=== PATIENT | female | born 1990 | race Caucasian/White ===

== ENCOUNTER 2016-07-07 14:48 | Outpatient (CLI) | payer BC ==
[2016-07-07 15:16] VITALS: BMI 39.5
== END 2016-07-07 16:36 | disposition home or self-care (01) ==
LOC: FBC 14:48 → FBCOUT 14:48
PROVIDERS: ATTEND Obstetrics & Gynecology
DX: O26.899 Other specified pregnancy related conditions, unspecified trimester (principal); Z3A.00 Weeks of gestation of pregnancy not specified
CPT/HCPCS: 59025; 81002; G0463

== ENCOUNTER 2016-07-30 21:41 | Inpatient (IN) | payer BC ==
[2016-07-30 22:00] VITALS: BMI 40.6
[2016-07-30] MEDS ORDERED: LACTATED RINGERS 1,000 ML IV PRN (22:19)
[2016-07-30] MEDS ORDERED: OXYTOCIN IN LR 500 ML IV ONE (22:19)
[2016-07-30] MEDS ORDERED: PENICILLIN G POTASSIUM 5 MMU in NS 0.9% (MINI-BAG PLUS) 100 ML IV ONE (22:20)
[2016-07-30] MEDS ORDERED: OXYTOCIN 10 UNITS/ML VIAL ONE (22:29)
[2016-07-30] MEDS ORDERED: IV START KIT ONE (22:29)
[2016-07-30] MEDS ORDERED: MINERAL OIL 25 ML BOT ONE (22:30)
[2016-07-30] MEDS ORDERED: PUMP TUBING ONE (22:30)
[2016-07-30] MEDS ORDERED: LIDOCAINE 1% (PRES FREE) 30 ML VIAL ONE (22:30)
[2016-07-30] MEDS ORDERED: LACTATED RINGERS 1,000 ML IV SCH (22:30)
[2016-07-30] MEDS ORDERED: FENTANYL/ROPIVACAINE EPIDURAL 250 ML EP ONE (22:30)
[2016-07-30] MEDS ORDERED: LIDOCAINE Viscous 2% 15 ML UDCUP ONE (22:30)
[2016-07-30] MEDS ORDERED: EPIDURAL PUMP SET ONE (22:30)
[2016-07-30] MEDS ORDERED: PENICILLIN G POTASSIUM 5 MMU VIAL ONE (22:42)
[2016-07-30] MEDS ORDERED: NS 0.9% (MINI-BAG PLUS) 100 ML IV ONE (22:46)
[2016-07-30 23:04] LABS: HEMATOCRIT 33.9 % (37.0-47.0); HEMOGLOBIN 11.5 gm/l (12.0-16.0); MEAN CORPUSCULAR HEMOGLOBIN 30.2 pg (27.0-31.0); MEAN CORPUSCULAR HGB CONC 33.9 g/dl (33.0-37.0); RED CELL DISTRIBUTION WIDTH 13.2 % (11.5-14.5)
[2016-07-30] MEDS ORDERED: FENTANYL 100 MCG/2 ML VIAL ONE (23:17)
[2016-07-30] MEDS ORDERED: EPIDURAL PROCEDURE TRAY ONE (23:18)
[2016-07-30] MEDS ORDERED: LIDOCAINE 2% (PRES FREE) 5 ML VIAL ONE (23:18)
[2016-07-30] MEDS ORDERED: FENTANYL/ROPIVACAINE EPIDURAL 250 ML EP SCH (23:22)
[2016-07-30] MEDS ORDERED: ROPIVACAINE 0.5% 30 ML VIAL ONE (23:50)
[2016-07-31] MEDS ORDERED: EPHEDRINE SULFATE 50 MG/ML 1ML VIAL IV PRN ×2 (00:23→02:32)
[2016-07-31] MEDS ORDERED: NALBUPHINE HCL 20 MG/ML AMP IV PRN ×2 (00:23→02:32)
[2016-07-31] MEDS ORDERED: DIPHENHYDRAMINE HCL 50 MG/1 ML VIAL IV PRN ×2 (00:23→02:32)
[2016-07-31] MEDS ORDERED: LACTATED RINGERS 1,000 ML IV SCH ×2 (00:23→02:32)
[2016-07-31] MEDS ORDERED: LACTATED RINGERS 500 ML IV PRN ×2 (00:23→02:32)
[2016-07-31] MEDS ORDERED: NALOXONE HCL 0.4 MG/ML VIAL IV PRN ×2 (00:23→02:32)
[2016-07-31] MEDS ORDERED: SODIUM CHLORIDE 0.9% 500 ML IV PRN ×2 (00:23→02:32)
[2016-07-31] MEDS ORDERED: ONDANSETRON 4 MG/2ML 2 ML VIAL IV PRN ×2 (00:23→02:32)
[2016-07-31] MEDS ORDERED: METOCLOPRAMIDE HCL 5 MG/ML 2ML VIAL IV PRN ×2 (00:23→02:32)
[2016-07-31] MEDS ORDERED: PENICILLIN G POTASSIUM 5 MMU in NS 0.9% (MINI-BAG PLUS) 100 ML IV ONE (00:30)
[2016-07-31] MEDS ORDERED: ROPIVACAINE 0.5% 30 ML VIAL ONE ×2 (00:44→04:16)
[2016-07-31] MEDS: FENTANYL/ROPIVACAINE EPIDURAL 250 ML EP SCH ×2 (01:01→11:44)
[2016-07-31] MEDS ORDERED: PENICILLIN G 3 MIL UNIT PREMIX 50 ML IV ONE (02:33)
[2016-07-31] MEDS ORDERED: PENICILLIN G 3 MIL UNIT PREMIX 3 MMU in Premix (D5W) 50 ml 1 EACH IV SCH (04:00)
[2016-07-31] MEDS ORDERED: MINERAL OIL 25 ML BOT TP ONE (05:42)
--- NOTE | 2016-07-31 06:03 | PCMDEL ---
Delivery Note - Delivery Delivery (Date): 07/31/16 Gender: Male Presentation: Cephalic Position: OA Umbilical Cord: 3 Vessel, Nuchal Cord (tight, cut on perineum) Placenta:: spontaneous and complete EBL:: 300ml Perineum:: intact
--- NOTE | 2016-07-31 06:04 | PCMAN ---
OB Admission Note - History : 5 Term: 2 : 0 Abortions (S&E): 2 Livin Gestational Age (weeks): 41 Days (#/7): 1 Admit Cervical Dilation:: 4 Admit Cervical Effacement (%):: 80 Admit Station:: -1 Admit Presentaton:: vtx Membrane Status: Ruptured Labor Onset (Date): 07/30/16 Labor Onset (Time): 16:30 Contractions: Yes Contraction Frequency:: 2-4 Heart Rate:: 140 Status:: category 1 tracing - Labs Blood Type: A (+) positive
[2016-07-31] MEDS ORDERED: DIPHTH,PERTUSS(ACELL),TET VAC 0.5 ML VIAL IM V ONE (06:20)
[2016-07-31] MEDS ORDERED: HYDROCODONE/ACETAMINOPHEN 5/325MG TABLET PO PRN (06:20)
[2016-07-31] MEDS ORDERED: MEASLES,MUMPS&RUBELLA VACCINE 0.5 ML VIAL SUB-Q V ONE (06:20)
[2016-07-31] MEDS ORDERED: LANOLIN 50 APPLIC/7G TUBE TP PRN (06:20)
[2016-07-31] MEDS ORDERED: BENZOCAINE/MENTHOL 60 APPLIC/BOT TP PRN (06:20)
[2016-07-31] MEDS ORDERED: PNEUMOCOCCAL 23-VAL P-SAC VAC 0.5 ML VIAL IM V ONE (06:32)
[2016-07-31] MEDS: DOCUSATE SODIUM 100 MG CAPSULE PO SCH (12:48)
[2016-07-31] MEDS: IBUPROFEN 800 MG TABLET PO PRN ×2 (12:48→19:05)
[2016-08-01] MEDS: IBUPROFEN 800 MG TABLET PO PRN (00:45)
[2016-08-01 07:03] LABS: HEMATOCRIT 26.1 % (37.0-47.0); HEMOGLOBIN 8.8 gm/l (12.0-16.0)
[2016-08-01 08:17] VITALS: BP 125/64
--- NOTE | 2016-08-01 09:08 | PDOC44 ---
- Subjective Day: 1 Reports Pain Tolerable, Reports , Reports Tolerating Regular Diet - Objective Temp Pulse Resp BP Pulse Ox 98.7 F 67 16 125/64 08/01/16 08:00 08/01/16 08:00 08/01/16 08:00 08/01/16 08:00 Lab Results 08/01/16 06:10 Hgb 8.8 L D Hct 26.1 L Current Medications Generic Name Dose Route Start Last Admin Trade Name Freq PRN Reason Stop Dose Admin Acetaminophen/Hydrocodone Bitart 1 - 2 tab 07/31/16 06:20 [place] 5/325 PO Q4H PRN Pain (Moderate) Benzocaine/Menthol 1 applic 07/31/16 06:20 Dermoplast TP PRN PRN Patient Comfort Diphenhydramine HCl 25 - 50 mg 07/31/16 02:32 Benadryl IV Q4H PRN Itching Docusate Sodium 100 mg 07/31/16 09:00 07/31/16 12:48 Colace PO 100 mg DAILY TERESA Administration Emollient Ointment 1 applic 07/31/16 06:20 Uiw-Z-Rmidus TP PRN PRN sore nipples Ephedrine Sulfate 10 mg 07/31/16 02:32 Ephedrine Sulfate IV Q5M PRN Ropivacaine/Fentanyl/NS 250 mls @ 0 mls/hr 07/31/16 06:00 07/31/16 11:44 Fentanyl 2 Mcg/Ml + Ropivacaine 0.125% Ep Bag EP Not Given EPI TERESA Protocol Per Protocol Ropivacaine/Fentanyl/NS 250 mls @ 0 mls/hr 07/30/16 23:22 07/31/16 15:53 Fentanyl 2 Mcg/Ml + Ropivacaine 0.125% Ep Bag EP Not Given EPI TERESA Protocol Per Protocol Sodium Chloride 500 mls @ 500 mls/hr 07/31/16 02:32 Sodium Chloride 0.9% IV .Q1H PRN SBP < 90 mmHG Ibuprofen 800 mg 07/31/16 06:20 08/01/16 00:45 Motrin PO 800 mg Q6H PRN Administration Pain (Mild) Metoclopramide HCl 10 mg 07/31/16 02:32 Reglan IV Q6H PRN Nalbuphine HCl 1 - 5 mg 07/31/16 02:32 Nubain IV Q4H PRN Itching Naloxone HCl 0.2 - 0.4 mg 07/31/16 02:32 Narcan IV Q5M PRN Ondansetron HCl 4 mg 07/31/16 02:32 Zofran IV Q6H PRN Nausea - Physical Exam General: Afebrile Psych/Mental Status: Mood/Affect Appropriate Breast: Soft Fundus: Firm Abdomen: Normal Bowel Sounds Genitourinary: Normal Female Genitalia Disposition: Stable, Anticipate DC to Home
[2016-08-01] MEDS ORDERED: FERROUS SULFATE (65 Fe) 325 MG TABLET PO SCH (09:15)
[2016-08-01] MEDS: DOCUSATE SODIUM 100 MG CAPSULE PO SCH (10:26)
== END 2016-08-01 11:05 | disposition home or self-care (01) | DRG 775 ==
LOC: FBC 21:41 → FBCOUT 21:41 → FBC 22:20
PROVIDERS: ADMIT Obstetrics & Gynecology; ATTEND Obstetrics & Gynecology
PROC: 10E0XZZ Delivery of Products of Conception, External Approach (ICD-10-PCS; principal; 2016-07-31)
DX: O48.0 Post-term pregnancy (principal); Z3A.41 41 weeks gestation of pregnancy; Z37.0 Single live birth; O09.43 Supervision of pregnancy with grand multiparity, third trimester